=== PATIENT | male | born 1950 | race Caucasian/White ===

== ENCOUNTER 2019-03-15 15:49 | Emergency (ER) | payer OTHER ==
[~2019-03-15] VITALS: Ht 157.5 cm; Wt 81.6 kg
[2019-03-15] MEDS ORDERED: METFORMIN HCL500 MG (16:04)
[2019-03-15] MEDS ORDERED: ATORVASTATIN CA10 MG (16:04)
== END 2019-03-15 19:10 | disposition home or self-care (01) ==
LOC: ER 15:49
DX: M54.16 Radiculopathy, lumbar region (principal)